=== PATIENT | female | born 1965 | race Caucasian/White ===

== ENCOUNTER → 2016-10-03 | Outpatient (CLI) | payer BC ==
[~2016-10-03] MED LIST: AMBIEN10 MG; AMITRYPTYLINE PO; ARISTOCORT A 0.15 GM TOP; BACTRIM DS TABL1 TA1 PO; BACTRIM DS TABL1 TAB PO; BENAZEPRIL HCTZ PO; DICLOFENAC PO; FLAGYL PO; IBUPROFEN PO; KCL PO; NIFEREX-150150 MG PO; PREDNISONE PO; VOLTAREN75 MG PO; [UNRECOGNIZED DRUG - REMARK]
--- NOTE | ~2016-10-03 | MY11 ---
[facility] A Service of [facility] RADIOLOGY TEXT RESULTS PATIENT: BERNARD FREY LOCATION: [facility] #: [id number] : 67 UNIT #: [id number] AGE: [address]: Ramya Dunlap MD SEX: F ORDER DR: [id number] [place] [id number] O MR#: [id number] Acc #: [id number] NAME: BERNARD FREY : 1965 SEX: F STUDY DATE/TIME: 10/03/2016 10:05 UNIT: [facility] ROOM: STUDY DESCRIPTION: MY Mammogram Screening Dig [facility] Attending Physician: Ramya Dunlap M.D. Ordering Physician: Ramya Dunlap M.D. Primary Care Physician: Naomi Dominguez M.D. MEDICAL IMAGING REPORT This report is preliminary unless electronic signature is present. EXAM Bilateral Digital Screening Mammogram with CAD INDICATION Breast cancer screening. 50-year-old asymptomatic female. No personal or family history of breast cancer. COMPARISON 09/08/2014, 04/26/2007 FINDINGS The breasts are almost entirely fatty. No suspicious findings are present. IMPRESSION No mammographic evidence of malignancy. Annual screening mammography and clinical breast exam are recommended. A result letter will be sent to the patient. Patients over the age of 40 are entered into a reminder system with target due date for the next mammogram. BIRADS: 1 Negative Dictated by... Geovanny James M.D. [facility] A Service of [facility] RADIOLOGY TEXT RESULTS PATIENT: BERNARD FREY LOCATION: [facility] #: [id number] : [birth year] UNIT #: [id number] AGE: [address]: Ramya Dunlap MD SEX: F ORDER DR: THIS IS AN ELECTRONICALLY VERIFIED REPORT Geovanny James M.D. at 10/06/2016 7:36 PM BLM/to TD: 10/03/2016 16:37 JOB #: [id number] MEDICAL IMAGING REPORT Page 1 of 1
== END | disposition home or self-care (01) ==
LOC: SMAM 09:24
DX: Z12.31 Encounter for screening mammogram for malignant neoplasm of breast (principal)
CPT/HCPCS: G0202